=== PATIENT | female | born 1980 | race Caucasian/White ===

== ENCOUNTER 2020-01-23 15:22 | Outpatient (REF) | payer SELFPAY ==
[2020-01-23 17:33] LABS: Estmated Average Glucose 103; Hemoglobin A1C 5.2 % (4.0-6.0)
[2020-01-23 17:48] LABS: Chol HDL Ratio 2.15 mg/dL (0.0-4.40); Cholesterol 170 mg/dL (0-200); Glucose 85 mg/dL (65-115); HDL Cholesterol 79 mg/dL (60-100); LDL Cholesterol Calculated 67 mg/dL (50-129); LDL HDL Ratio 0.85 RATIO (0.00-3.22); Triglycerides 118 mg/dL (0-150)
== END 2020-01-23 15:23 | disposition home or self-care (01) ==
LOC: LAB 15:22
PROVIDERS: Family Provider Family Medicine; PCP Registered Nurse; Visit Provider Dermatology
DX: Z13.9 Encounter for screening, unspecified (principal)
CPT/HCPCS: 80061; 82947; 83036

== ENCOUNTER → 2020-03-20 12:38 | Outpatient (BNVA) | payer SELFPAY | PROVIDERS: Family Provider Family Medicine; PCP Registered Nurse; Visit Provider Registered Nurse | DX: R30.0 Dysuria (principal) | CPT/HCPCS: 81000 ==

== ENCOUNTER → 2020-12-07 09:34 | Outpatient (BNVA) | payer OTHER, SELFPAY | PROVIDERS: Family Provider Family Medicine; PCP Registered Nurse; Visit Provider Registered Nurse | DX: R10.9 Unspecified abdominal pain (principal); N20.0 Calculus of kidney | CPT/HCPCS: 81000 ==

== ENCOUNTER → 2020-12-24 09:55 | Outpatient (BNVA) | payer OTHER, SELFPAY | PROVIDERS: Family Provider Family Medicine; PCP Registered Nurse; Visit Provider Registered Nurse | DX: Z01.419 Encounter for gynecological examination (general) (routine) without abnormal findings (principal) | CPT/HCPCS: 88175 ==

== ENCOUNTER → 2021-01-22 08:02 | Outpatient (BNVA) | payer OTHER, SELFPAY | PROVIDERS: Family Provider Family Medicine; PCP Registered Nurse; Visit Provider Dermatology | DX: Z13.6 Encounter for screening for cardiovascular disorders (principal) | CPT/HCPCS: 80061; 82947; 83036 ==

== ENCOUNTER 2021-05-24 13:59 | Outpatient (CLI) | payer OTHER, SELFPAY ==
--- NOTE | 2021-05-24 14:05 | MM_ITS ---
WS: [id number] BILATERAL DIGITAL SCREENING MAMMOGRAPHY WITH CAD CLINICAL INFORMATION: SCREENING HISTORY: Screening mammogram. No current complaints. COMPARISON: None. TECHNIQUE: Bilateral CC and MLO views. FINDINGS: Scattered fibroglandular densities bilaterally. Punctate calcification right breast. No suspicious fo patrick mass, asymmetry, calcifications, or architectural distortion. No evidence of malignancy. MM/[place] [id number] IMPRESSION: BI-RADS: 2-Benign FOLLOW UP: 1 Year Follow-up Recommend return to annual screening mammography.
== END 2021-05-24 14:00 | disposition home or self-care (01) ==
LOC: RADSHAW 14:03
PROVIDERS: Family Provider Family Medicine; PCP Registered Nurse; Visit Provider Registered Nurse
DX: Z12.31 Encounter for screening mammogram for malignant neoplasm of breast (principal)
CPT/HCPCS: 77067

== ENCOUNTER → 2022-02-16 08:12 | Outpatient (BNVA) | payer OTHER, SELFPAY | PROVIDERS: Family Provider Family Medicine; PCP Registered Nurse; Visit Provider Registered Nurse | DX: J18.9 Pneumonia, unspecified organism (principal) | CPT/HCPCS: 71046 ==

== ENCOUNTER → 2022-03-25 10:19 | Outpatient (BNVA) | payer OTHER, SELFPAY | PROVIDERS: Family Provider Family Medicine; PCP Registered Nurse; Visit Provider Registered Nurse | DX: N39.0 Urinary tract infection, site not specified (principal) | CPT/HCPCS: 81000; 87077; 87086; 87184 ==

== ENCOUNTER → 2022-08-09 08:18 | Outpatient (BNVA) | payer OTHER, SELFPAY | PROVIDERS: Family Provider Family Medicine; PCP Registered Nurse; Visit Provider Dermatology | DX: Z01.89 Encounter for other specified special examinations (principal); E66.9 Obesity, unspecified; R05.8 Other specified cough; J30.89 Other allergic rhinitis ==

== ENCOUNTER 2022-09-16 13:24 | Outpatient (CLI) | payer OTHER, SELFPAY ==
--- NOTE | 2022-09-16 13:40 | MM_ITS ---
WS: [id number] Bilateral screening 3D tomosynthesis digital mammogram, 09/16/2022 Clinical Data: SCREEN Comparison: 05/24/2021. Findings: The breast parenchymal pattern shows fibroglandular tissue. No spiculated masses or clustered calcifi cations are seen. There are no secondary signs of carcinoma. MM/[place] [id number] Impression: 1. Negative bilateral mammogram unchanged. 2. Recommend annual screening mammograms. BIRADS: 1-Negative FOLLOW UP: 1 Year Follow-up The CAD [employer] was used.
== END 2022-09-16 13:25 | disposition home or self-care (01) ==
LOC: RAD 13:27
PROVIDERS: Family Provider Family Medicine; PCP Registered Nurse; Visit Provider Registered Nurse
DX: Z12.31 Encounter for screening mammogram for malignant neoplasm of breast (principal)
CPT/HCPCS: 77063; 77067

== ENCOUNTER → 2023-02-23 15:10 | Outpatient (BNVA) | payer OTHER, SELFPAY | PROVIDERS: PCP Registered Nurse; Visit Provider Registered Nurse | DX: N39.0 Urinary tract infection, site not specified (principal); E66.9 Obesity, unspecified; Z30.9 Encounter for contraceptive management, unspecified; R39.9 Unspecified symptoms and signs involving the genitourinary system | CPT/HCPCS: 81000 ==

== ENCOUNTER → 2023-09-15 17:21 | Outpatient (BNVA) | payer OTHER, SELFPAY | PROVIDERS: PCP Registered Nurse; Visit Provider Emergency Medicine | DX: S82.831A Other fracture of upper and lower end of right fibula, initial encounter for closed fracture (principal); X50.1XXA Overexertion from prolonged static or awkward postures, initial encounter | CPT/HCPCS: 73610 ==

== ENCOUNTER 2023-09-18 06:00 | Outpatient (CLI) | payer OTHER, SELFPAY | END 2023-09-18 06:01 | disposition home or self-care (01) | LOC: SPT 09-19 08:02 | PROVIDERS: PCP Registered Nurse; Visit Provider Podiatrist Foot & Ankle Surgery | DX: Z46.89 Encounter for fitting and adjustment of other specified devices (principal); S82.831D Other fracture of upper and lower end of right fibula, subsequent encounter for closed fracture with routine healing; X58.XXXD Exposure to other specified factors, subsequent encounter | CPT/HCPCS: 97760; L1902; L4361 ==

== ENCOUNTER → 2023-10-04 15:10 | Outpatient (BNVA) | payer OTHER, SELFPAY | PROVIDERS: PCP Registered Nurse; Visit Provider Podiatrist Foot & Ankle Surgery | DX: S93.421A Sprain of deltoid ligament of right ankle, initial encounter; S92.154A Nondisplaced avulsion fracture (chip fracture) of right talus, initial encounter for closed fracture; S92.021A Displaced fracture of anterior process of right calcaneus, initial encounter for closed fracture; X58.XXXA Exposure to other specified factors, initial encounter | CPT/HCPCS: 73610 ==

== ENCOUNTER 2023-10-12 12:49 | Outpatient (CLI) | payer OTHER, SELFPAY ==
--- NOTE | 2023-10-12 13:00 | MM_ITS ---
WS: [id number] BILATERAL SCREENING DIGITAL TOMOSYNTHESIS MAMMOGRAM WITH CAD HISTORY: SCREENING COMPARISON: 09/16/2022 and 05/24/2021. Bilateral CC and MLO views with tomosynthesis and synthetic mammography submitted. Computer aided det ection analyzed. Breast composition: There are scattered areas of fibroglandular density. No suspicious masses, microc alcifications or architectural distortion. Benign calcification central RIGHT breast. IMPRESSION: MM/[place] [id number] BI-RADS: 2-Benign FOLLOW UP: 1 Year Follow-up
== END 2023-10-12 12:50 | disposition home or self-care (01) ==
LOC: MOBLMAM 13:00
PROVIDERS: PCP Registered Nurse; Visit Provider Registered Nurse
DX: Z12.31 Encounter for screening mammogram for malignant neoplasm of breast (principal)
CPT/HCPCS: 77063; 77067

== ENCOUNTER → 2023-10-23 15:25 | Outpatient (BNVA) | payer OTHER, SELFPAY | PROVIDERS: PCP Registered Nurse; Visit Provider Podiatrist Foot & Ankle Surgery | DX: S92.154A Nondisplaced avulsion fracture (chip fracture) of right talus, initial encounter for closed fracture; S92.021A Displaced fracture of anterior process of right calcaneus, initial encounter for closed fracture; X58.XXXA Exposure to other specified factors, initial encounter | CPT/HCPCS: 73610 ==

== ENCOUNTER 2023-10-26 07:58 | Outpatient (CLI) | payer OTHER, SELFPAY ==
--- NOTE | 2023-10-26 08:45 | MR_ITS ---
WS: [id number] MRI RIGHT FOOT WITHOUT CONTRAST. COMPARISON: RIGHT ankle radiograph 10/23/2023. Multiplanar, multisequence imaging is performed without contrast. There is a small amount of marrow edema in the far medial talus closely associated with the anterior calcaneal process. There is loss of the normal overlying cortex suggesting an osteochondral lesion. T here is a small amount of edema. No additional acute marrow edema. Radiographic abnormality noted at the fibular tip is probably from an old fracture or accessory ossicle. There is no significant joint effusion. Extensor and flexor tendons are normal position and signal. Tarsal metatarsal alignment is normal. Normal Achilles tendon. IMPRESSION: 1. Focal marrow edema in the far medial talus with loss of the normal overlying cortex suggesting an osteochondral injury. There is no displacement. 2. No ligament or tendon injury identified. 3. No distal fibular acute fracture.
== END 2023-10-26 07:59 | disposition home or self-care (01) ==
LOC: RAD 07:59
PROVIDERS: PCP Registered Nurse; Visit Provider Podiatrist Foot & Ankle Surgery
DX: R93.6 Abnormal findings on diagnostic imaging of limbs (principal); S92.151D Displaced avulsion fracture (chip fracture) of right talus, subsequent encounter for fracture with routine healing; S93.421D Sprain of deltoid ligament of right ankle, subsequent encounter; X58.XXXD Exposure to other specified factors, subsequent encounter
CPT/HCPCS: 73718

== ENCOUNTER → 2023-11-30 15:37 | Outpatient (BNVA) | payer OTHER, SELFPAY | PROVIDERS: PCP Registered Nurse; Visit Provider Podiatrist Foot & Ankle Surgery | DX: S92.154D Nondisplaced avulsion fracture (chip fracture) of right talus, subsequent encounter for fracture with routine healing (principal); S92.024D Nondisplaced fracture of anterior process of right calcaneus, subsequent encounter for fracture with routine healing; X58.XXXD Exposure to other specified factors, subsequent encounter | CPT/HCPCS: 73610 ==

== ENCOUNTER → 2024-01-04 15:16 | Outpatient (BNVA) | payer OTHER, SELFPAY | PROVIDERS: PCP Registered Nurse; Visit Provider Podiatrist Foot & Ankle Surgery | DX: S92.154D Nondisplaced avulsion fracture (chip fracture) of right talus, subsequent encounter for fracture with routine healing; S92.024D Nondisplaced fracture of anterior process of right calcaneus, subsequent encounter for fracture with routine healing; X58.XXXD Exposure to other specified factors, subsequent encounter | CPT/HCPCS: 73610 ==

== ENCOUNTER → 2024-01-31 08:58 | Outpatient (BNVA) | payer OTHER, SELFPAY | PROVIDERS: PCP Registered Nurse; Visit Provider Podiatrist Foot & Ankle Surgery | DX: S92.154A Nondisplaced avulsion fracture (chip fracture) of right talus, initial encounter for closed fracture; S92.024A Nondisplaced fracture of anterior process of right calcaneus, initial encounter for closed fracture; X58.XXXA Exposure to other specified factors, initial encounter; M95.8 Other specified acquired deformities of musculoskeletal system; M76.821 Posterior tibial tendinitis, right leg | CPT/HCPCS: 73610 ==

== ENCOUNTER 2024-04-24 12:02 | Outpatient (CLI) | payer OTHER, SELFPAY ==
--- NOTE | 2024-04-24 12:15 | MR_ITS ---
WS: [id number] MRI RIGHT FOOT WITHOUT CONTRAST. COMPARISON: 10/26/2023, ankle radiograph 01/31/2024 Multiplanar, multisequence imaging is performed without contrast. No fractures or marrow edema. Marrow edema described in the medial talus on the prior examination is not identified on today's examination as the foot MRI was obtained and not the ankle. Also poor visua lization of the complete posterior tibial tendon. There is no soft tissue abnormality or tendon abnor mality from the midfoot distally. Lisfranc ligament appears appropriate. Normal tarsometatarsal align ment. No erosions. MR/MR foot RT wo con* [id number] IMPRESSION: 1. No marrow edema or fractures involving the midfoot or metatarsals. 2. No widening of the Lisfranc ligament. 3. Talus is not included on this examination as it is part of the MRI ankle se radha. The visualized distal tendons are negative. If there is concern for poste rior tibial tendon pathology ankle MRI may be of benefit.
== END 2024-04-24 12:03 | disposition home or self-care (01) ==
LOC: RAD 12:02
PROVIDERS: PCP Registered Nurse; Visit Provider Podiatrist Foot & Ankle Surgery
DX: S92.154A Nondisplaced avulsion fracture (chip fracture) of right talus, initial encounter for closed fracture (principal); M76.821 Posterior tibial tendinitis, right leg; M95.8 Other specified acquired deformities of musculoskeletal system
CPT/HCPCS: 73718

== ENCOUNTER 2024-05-16 13:45 | Outpatient (CLI) | payer OTHER, SELFPAY ==
--- NOTE | 2024-05-16 13:45 | MRR_ITS ---
PROCEDURE INFORMATION: Exam: MR Right Lower Extremity Joint Without Contrast; Ankle Exam date and time: 05/16/2024 1:48 PM Age: 44 years old Clinical indication: Condition or disease; Other: Nondisplaced avulsion fracture; Patient HX: HX of avulsion FX, continued pain; Additional info: S92.154a - nondisplaced avulsion fracture (chip fracture). . . TECHNIQUE: Imaging protocol: Magnetic resonance imaging of the right lower extremity without contrast. Exam focused on the ankle. COMPARISON: CR XR ankle RT min 3V* [id number] 01/31/2024 9:03 AM FINDINGS: There is no convincing MR evidence of acute fracture or dislocation. Alignment is anatomic. Bone marrow signal is normal. Mild degenerative changes are evident. There is mild spur formation along the lateral aspect of the talar body. 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 The peroneus longus tendon is intact. The visualized portions of the medial and anterior ankle tendons are intact. The plantar fascia and Achilles tendon are also intact. There is normal signal in the sinus tarsi. The anterior talofibular ligament is torn. There is partial-thickness tearing of the posterior talofibular ligament. The calcaneofibular ligament is poorly seen. The visualized portions of the spring ligament and deltoid ligament complex are intact. MR/MR ankle RT wo con* [id number] IMPRESSION: 1. Lateral ankle sprain, as described above. No convincing fracture. 2. 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 3. Additional findings, as above.
== END 2024-05-16 13:46 | disposition home or self-care (01) ==
PROVIDERS: PCP Registered Nurse; Visit Provider Podiatrist Foot & Ankle Surgery
DX: S93.491A Sprain of other ligament of right ankle, initial encounter (principal); Y99.9 Unspecified external cause status
CPT/HCPCS: 73721

== ENCOUNTER → 2024-08-06 10:12 | Outpatient (BNVA) | payer BC, SELFPAY | PROVIDERS: PCP Registered Nurse; Visit Provider Registered Nurse | DX: Z01.419 Encounter for gynecological examination (general) (routine) without abnormal findings (principal); Z13.6 Encounter for screening for cardiovascular disorders | CPT/HCPCS: 80053; 80061; 87624 ==

== ENCOUNTER 2024-11-06 09:59 | Outpatient (CLI) | payer BC, SELFPAY ==
--- NOTE | 2024-11-06 10:00 | MM_ITS ---
WS: [id number] BILATERAL SCREENING DIGITAL TOMOSYNTHESIS MAMMOGRAM WITH CAD HISTORY: SCREENING COMPARISON: 10/12/2023, 09/16/2022 Bilateral CC and MLO views with tomosynthesis and synthetic mammography submitted. Computer aided det ection analyzed. Breast composition: There are scattered areas of fibroglandular density. No suspicious masses, microc alcifications or architectural distortion. Benign calcification 12:00 RIGHT breast. MM/MM scr BI tomosynthesis [id number] IMPRESSION: BI-RADS: 2 - Benign. FOLLOW UP: 1 Year Follow-up
== END 2024-11-06 10:00 | disposition home or self-care (01) ==
LOC: MOBLMAM 10:04
PROVIDERS: PCP Registered Nurse; Visit Provider Registered Nurse
DX: Z12.31 Encounter for screening mammogram for malignant neoplasm of breast (principal); R92.323 Mammographic fibroglandular density, bilateral breasts; R92.1 Mammographic calcification found on diagnostic imaging of breast
CPT/HCPCS: 77063; 77067